=== PATIENT | female | born 1935 | race Asian ===

== ENCOUNTER 2018-05-25 16:56 | Inpatient (IN) | payer MEDICARE, BC ==
[~2018-05-25] VITALS: Ht 147.3 cm; Wt 34.3 kg
[2018-05-25] MEDS ORDERED: D5 1/2NS 1,000 ML IV SCH (20:30)
[2018-05-25 20:32] LABS: BASOPHILS % (AUTO) 0.7 % (0.0-2.0); EOSINOPHILS % (AUTO) 0.7 % (0.0-3.0); HEMATOCRIT 37.1 % (37.0-47.0); HEMOGLOBIN 12.5 G/DL (12.0-16.0); LYMPHOCYTES % (AUTO) 14.8 % (20.0-45.0); MEAN CORPUSCULAR VOLUME 89 FL (80-99); MONOCYTES % (AUTO) 8.6 % (1.0-10.0); NEUTROPHILS % (AUTO) 75.3 % (45.0-75.0); PLATELET COUNT 313 K/UL (150-450); RED BLOOD COUNT 4.19 M/UL (4.20-5.40); RED CELL DISTRIBUTION WIDTH 10.9 % (11.6-14.8); WHITE BLOOD COUNT 8.5 K/UL (4.8-10.8)
[2018-05-25 21:49] LABS: ALANINE AMINOTRANSFERASE 23 U/L (12-78); ALBUMIN 3.3 G/DL (3.4-5.0); ALBUMIN/GLOBULIN RATIO 0.9 (1.0-2.7); ALKALINE PHOSPHATASE 285 U/L (46-116); ANION GAP 2 mmol/L (5-15); ASPARTATE AMINO TRANSFERASE 20 U/L (15-37); BILIRUBIN,TOTAL 0.5 MG/DL (0.2-1.0); BLOOD UREA NITROGEN 32 mg/dL (7-18); CALCIUM 8.8 MG/DL (8.5-10.1); CARBON DIOXIDE 30 MMOL/L (21-32); CHLORIDE 104 MMOL/L (98-107); CHOLESTEROL 137 MG/DL (< 200); CREATININE 0.5 MG/DL (0.55-1.30); HDL CHOLESTEROL 74 MG/DL (40-60); POTASSIUM 3.4 MMOL/L (3.5-5.1); SODIUM 136 MMOL/L (136-145); TRIGLYCERIDES 60 MG/DL (30-150)
[2018-05-25 22:30] VITALS: BP 129/60
--- NOTE | 2018-05-25 22:30 | History and Physical Report ---
DATE OF ADMISSION: 05/25/2018 CHIEF COMPLAINT: Toxic metabolic encephalopathy and altered mental status. HISTORY OF PRESENT ILLNESS: The patient is an 83-year-old female. She has a history of hypertension, osteoporosis, vitamin D deficiency, and hyperlipidemia. She was brought in from home from her assisted living with complaints of worsening confusion. According to staff at the [facility], the patient has been increasingly confused and has had worsening weight loss. She has been refusing to eat. She has been found defecating on the floor and playing with her stool. She was seen a little over a [id number]-[id number]-[id number]-half ago. At that time, was doing well. I assumed the care only a trfpt-[id number]-[id number]-half ago. On my prior visit, the patient did seem somewhat withdrawn and paranoid. There are no reports of any hallucinations. The patient denies any chest pain or shortness of breath. No dysuria. No cough. No fevers or chills. PAST MEDICAL HISTORY: As above. PAST SURGICAL HISTORY: None. CURRENT MEDICATIONS: Reconciled and reviewed. ALLERGIES: None. FAMILY HISTORY: Unknown. SOCIAL HISTORY: There is no known history of tobacco, ethanol, or drugs. REVIEW OF SYSTEMS: GENERAL: No fevers or chills. HEENT: No headaches or visual changes. CARDIOPULMONARY: No chest pain or shortness of breath. GASTROINTESTINAL: No nausea or vomiting. Positive anorexia or weight loss. GENITOURINARY: No urgency or frequency. MUSCULOSKELETAL: No joint pain or swelling. NEUROLOGIC: No evidence of seizures. PHYSICAL EXAMINATION: VITAL SIGNS: Temperature 98 degrees, blood pressure 130/76, pulse 82, and respirations 20. GENERAL: The patient is a well-developed, thin female, in no apparent distress. She is awake, alert, and follows commands. NECK: Supple. HEART: Regular rate and rhythm. LUNGS: Clear. ABDOMEN: Soft, nontender, and nondistended. EXTREMITIES: Without clubbing or cyanosis. The patient moves all four extremities. Sensation is intact bilaterally. LABORATORY AND DIAGNOSTIC DATA: Laboratories are pending. ASSESSMENT: This is an 83-year-old female with no complaints of failure to thrive, worsening altered mental status, unclear etiology. 1. Toxic metabolic encephalopathy. 2. History of dementia. 3. Vitamin D deficiency. 4. Hyperlipidemia. PLAN: 1. Admit to medical/surgical bed. 2. Followup pending laboratories. 3. Gentle hydration. 4. Anxiolytics as needed. 5. Check UA and chest x-ray. 6. Check electrolytes. 7. Check thyroid function tests. 8. Check B12 and folate level. 9. Psychiatric consultation. 10. A Neurology consultation had been obtained. Tanner Rm M.D. DR: MARCI JOB#: [id number] CC:
[2018-05-26] VITALS: BP 130/62
[2018-05-26 04:00] VITALS: BP 124/61
[2018-05-26 05:53] LABS: APPEARANCE,URINE CLEAR; BILIRUBIN, URINE NEGATIVE (NEGATIVE); COLOR,URINE AMBER; GLUCOSE, URINE (UA) NEGATIVE (NEGATIVE); KETONES,URINE NEGATIVE (NEGATIVE); LEUKOCYTE ESTERASE ,URINE 1+ (NEGATIVE); NITRITE,URINE POSITIVE (NEGATIVE); PH,URINE 6 (4.5-8.0); PROTEIN,URINE 1+ (NEGATIVE); UROBILINOGEN,URINE NORMAL MG/DL (0.0-1.0)
[2018-05-26] MEDS: Aspirin EC 81mg tab ORAL SCH (09:08)
[2018-05-26] MEDS: Tums 500mg ORAL SCH ×2 (09:08→17:50)
[2018-05-26] MEDS: Heparin 5000 units/ml inj SUBQ SCH ×2 (09:11→20:30)
[2018-05-26] MEDS ORDERED: LORazepam Inj 2mg/ml 1ml IV PRN (09:45)
[2018-05-26] MEDS ORDERED: ASPIRIN EC81 MG ORAL (09:49)
[2018-05-26] MEDS ORDERED: OS-CAL 500+D31 EAC1 PO (09:49)
[2018-05-26] MEDS ORDERED: RISEDRONATE SOD35 M1 PO (09:50)
[2018-05-26] MEDS ORDERED: MULTI VITAMIN1 EACH ORAL (10:49)
[2018-05-26] MEDS: D5NS w/KCl 40mEq 1000ml 1,000 ML IV SCH (10:59)
[2018-05-26] MEDS: cefTRIAXone 1 GM in D5W 55 ML IVPB SCH (11:00)
[2018-05-26 12:00] VITALS: BP 147/62
--- NOTE | 2018-05-26 13:49 | Diagnostic Imaging Report ---
Indication: Dementia. Altered mental status Technique: Contiguous 5 mm thick transaxial imaging of the head obtained in a Siemens Sensation [address] scanner. Soft tissue and bone windows generated. Automatic Exposure Control was utilized. Total Dose length Product (DLP): 918.[address] Dose Index Volume (CTDIvol): 70.38 mGy Comparison: none Findings: There is moderate prominence of the ventricles, basal cisterns, and cerebral sulci consistent with atrophy. Moderate, nonspecific, white matter hypoattenuation is noted throughout the brain consistent with chronic small vessel disease. There is no midline shift, edema, acute hemorrhage, mass effect, or abnormal extra-axial fluid collections. Bones and extra osseous soft tissues are unremarkable. Impression: No acute intracranial bleed, mass effect or edema. Moderate atrophy of the brain. Evidence of chronic small vessel disease involving white matter tracts. The CT scanner at [facility] is accredited by the [employer] and the scans are performed using dose optimization techniques as appropriate to a performed exam including Automatic Exposure control.
--- NOTE | 2018-05-26 15:15 | Cardiology Report ---
APPROVED REPORT EXAM: Two-dimensional and M-mode echocardiogram with Doppler and color Doppler. INDICATION Abnormal cardiac function study M-Mode DIMENSIONS IVSd0.8 (0.7-1.1cm)Left Atrium (MM)2.2 (1.6-4.0cm) LVDd4.2 (3.5-5.6cm)Aortic Root2.9 (2.0-3.7cm) PWd0.9 (0.7-1.1cm)Aortic Cusp Exc.1.8 (1.5-2.0cm) LVDs2.6 (2.5-4.0cm) PWs1.2 cm Normal left ventricular chamber size, systolic function and wall motion. Left ventricular ejection fraction estimated to be 70 %. No evidence of left ventricular hypertrophy. No evidence of pericardial effusion. All other cardiac chamber sizes are within normal limits. Focal aortic valve sclerosis with adequate cusp excursion. Thickened mitral valve leaflets with normal excursion. Mitral annulus and aortic root calcification. Normal pulmonic valve structure. Normal tricuspid valve structure. IVC measured at 2.1 cm with physiologic collapse. A color flow and spectral Doppler study was performed and revealed: Mild to moderate aortic regurgitation. Mild mitral regurgitation. Mitral inflow indicates normal left ventricular diastolic function. Trace to mild tricuspid regurgitation. Tricuspid systolic velocities suggests peak right ventricular systolic pressure of 30 mmHg.
[2018-05-26 16:00] VITALS: BP 138/65
--- NOTE | 2018-05-26 19:45 | Neurology Progress Note ---
Interim History Interim History Interim History NEUROLOGY CONSULTATION: Full note dictated #[id number] 83 y/o, RH, JAF with a PH of depression for numerous years, HTN, DL, osteoporosis, vitamin D deficiency, and a dementia for the last 5-6 years that has progressively worsened. She was recently moved from her home to an GROUP [facility]. For the last few days she has had worsening confusion. According to staff at the [facility], the patient has been increasingly confused and has had progressive weight loss. She has been refusing to eat. She has been found defecating on the floor and playing with her stool. ON EXAM: Drowsy - was sedated for CT of brain. Oriented to self only. No focal findings. 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 Exam inadequate today due to recent sedation. REC: W/U for cognitive decline. Aggressive Rx of UTI Will re-evaluate tomorrow. Haja Daniel M.D., M.S.P.H. Objective Physical Exam Last Vital Signs Date Time Temp Pulse Resp B/P (MAP) Pulse Ox O2 Delivery O2 Flow Rate FiO2 05/26/18 16:00 96.7 83 18 138/65 (89) 96 05/26/18 09:00 Room Air Laboratory Tests Test 05/25/18 20:05 05/26/18 04:00 05/26/18 05:35 White Blood Count 8.5 K/UL (4.8-10.8) Red Blood Count 4.19 M/UL (4.20-5.40) L Hemoglobin 12.5 G/DL (12.0-16.0) Hematocrit 37.1 % (37.0-47.0) Mean Corpuscular Volume 89 FL (80-99) Mean Corpuscular Hemoglobin 29.8 PG (27.0-31.0) Mean Corpuscular Hemoglobin Concent 33.6 G/DL (32.0-36.0) Red Cell Distribution Width 10.9 % (11.6-14.8) L Platelet Count 313 K/UL (150-450) Mean Platelet Volume 4.6 FL (6.5-10.1) L Neutrophils (%) (Auto) 75.3 % (45.0-75.0) H Lymphocytes (%) (Auto) 14.8 % (20.0-45.0) L Monocytes (%) (Auto) 8.6 % (1.0-10.0) Eosinophils (%) (Auto) 0.7 % (0.0-3.0) Basophils (%) (Auto) 0.7 % (0.0-2.0) Sodium Level 136 MMOL/L (136-145) Potassium Level 3.4 MMOL/L (3.5-5.1) L Chloride Level 104 MMOL/L (98-107) Carbon Dioxide Level 30 MMOL/L (21-32) Anion Gap 2 mmol/L (5-15) L Blood Urea Nitrogen 32 mg/dL (7-18) H Creatinine 0.5 MG/DL (0.55-1.30) L Estimat Glomerular Filtration Rate mL/min (>60) Glucose Level 113 MG/DL (74-106) H Calcium Level 8.8 MG/DL (8.5-10.1) Total Bilirubin 0.5 MG/DL (0.2-1.0) Aspartate Amino Transf (AST/SGOT) 20 U/L (15-37) Alanine Aminotransferase (ALT/SGPT) 23 U/L (12-78) Alkaline Phosphatase 285 U/L (46-116) H Troponin I 0.125 ng/mL (0.000-0.056) 0.108 ng/mL (0.000-0.056) Total Protein 6.9 G/DL (6.4-8.2) Albumin 3.3 G/DL (3.4-5.0) L Globulin 3.6 g/dL Albumin/Globulin Ratio 0.9 (1.0-2.7) L Triglycerides Level 60 MG/DL (30-150) Cholesterol Level 137 MG/DL (< 200) LDL Cholesterol 58 mg/dL (<100) HDL Cholesterol 74 MG/DL (40-60) H Cholesterol/HDL Ratio 1.9 (3.3-4.4) L Vitamin B12 Level 440 PG/ML (193-986) Thyroid Stimulating Hormone (TSH) 1.531 uiU/mL (0.358-3.740) Urine Color Carli Urine Appearance Clear Urine pH 6 (4.5-8.0) Urine Specific [place] 1.020 (1.005-1.035) Urine Protein 1+ (NEGATIVE) H Urine Glucose (UA) Negative (NEGATIVE) Urine Ketones Negative (NEGATIVE) Urine Blood 2+ (NEGATIVE) H Urine Nitrite Positive (NEGATIVE) H Urine Bilirubin Negative (NEGATIVE) Urine Ictotest (NEGATIVE) Urine Urobilinogen Normal MG/DL (0.0-1.0) Urine Leukocyte Esterase 1+ (NEGATIVE) H Urine RBC 0-2 /HPF (0 - 2) Urine WBC 5-10 /HPF (0 - 2) H Urine Squamous Epithelial Cells Many /LPF (NONE/OCC) H Urine Bacteria Many /HPF (NONE) H Haja Daniel MD May 26, 2018 19:45
[2018-05-26 20:00] VITALS: BP 142/67
--- NOTE | 2018-05-26 23:30 | Consultation ---
DATE OF CONSULTATION: 05/26/2018 NEUROLOGY CONSULTATION CONSULTING PHYSICIAN: Haja Daniel M.D. REQUESTING PHYSICIAN: Tanner Rm M.D. HISTORY: Ms. Delaney Hyman is an 83-year-old, [place] lady who does have a past history of depression for numerous years, hypertension, dyslipidemia, osteoporosis, vitamin D deficiency, and dementia for the last 5 to 6 years that has progressively worsened. She was living at home until February 2018 when she was moved to an assisted living facility. For the last few days, she has had worsening confusion, disorientation at times agitation and according to the staff at her assisted living facility she has been confused and had progressive weight loss. She has refused to eat and at times has been found defecating on the floor and playing with her feces. As a result of these problems, she was brought into the [facility] Emergency Room and has since been admitted. This consultation was requested to evaluate the patient from a neurological point of view for a decline in cognitive function and behavioral problems. At this point in time, the patient is unable to give me any history. She is sedated from the Ativan that she got to obtain CT scan of the brain earlier today. PAST MEDICAL HISTORY: Significant for depression, hypertension, dyslipidemia, osteoporosis, vitamin D deficiency, and dementia. FAMILY HISTORY: Nothing significant. PERSONAL HISTORY: Home: She lives in an assisted living facility. Work: She is retired. Habits: There is no history of alcohol, tobacco, or illicit drugs. PRESENT MEDICATIONS: Include Fosamax, ceftriaxone, heparin for DVT prophylaxis, aspirin 81 mg daily, calcium carbonate, and she got a single dose of Ativan 2 mg IV earlier today for her CT scan. PHYSICAL EXAMINATION: GENERAL: She is a well-developed, well-nourished, pleasant, [place] lady, lying in bed, in no acute distress. VITAL SIGNS: Pulse 65 per minute, blood pressure 138/65 mmHg, respirations 18 per minute, and temperature 96.7 degrees Fahrenheit. HEAD: Normocephalic and atraumatic. NECK: No neck rigidity was observed. EENT: Examination benign. NEUROLOGIC EXAMINATION: MENTAL STATUS EXAMINATION: She was drowsy, but could be aroused. When aroused, she was oriented to self only. She had no idea where she was or what the date was. She was able to recall 3/3 words immediately, but could not remember any of them in one minute and 3 minutes. She was unable to tell me who the present President was and who prior presidents were. Her mathematical skills were impaired. Her visuospatial function was also impaired. Please note that the patient was still sedated from the Ativan she got earlier. SPEECH: She had no dysarthria. LANGUAGE: She was able to comprehend relatively well but had problems expressing herself. CRANIAL NERVE EXAMINATION: II: The visual heller were intact to confrontation testing. III, IV & : The external ocular movements were full and the pupils 3 mm in diameter, equal, round, regular, and reactive to light. V: She had normal facial sensations, and the temporales, masseters, and pterygoids functioned normally. VII: She had normal facial expressions and no facial asymmetry. VIII: She was able to hear well bilaterally and had no nystagmus. IX: The palate moved symmetrically on phonation. X: She had no hoarseness of voice. XI: The sternocleidomastoids and trapezii functioned normally. XII: The tongue was in the midline without any fasciculations or atrophy. MOTOR SYSTEM: The tone was normal in all four extremities. Examination of muscle mass revealed no focal wasting. Examination of power was exceedingly difficult to perform because of varying degrees of cooperation. She however did not have any focality to motor exam therefore it was however not satisfactory. SENSORY EXAMINATION: She responded appropriately to deep pain. She was unable to cooperate for the sensory modalities. REFLEXES: 1+ and bilaterally symmetrical at the biceps, triceps, brachioradialis, and knees, 0 at both ankles. The plantar responses were flexor bilaterally. COORDINATION, STANCE & GAIT: Could not be tested. DIAGNOSTIC IMPRESSION: 1. Ms. Delaney Hyman is an 83-year-old, [place] lady, who does have a past history of depression, hypertension, dyslipidemia, osteoporosis, vitamin D deficiency, and dementia for the last 5 to 6 years which has progressively worsened and worsened significantly in the last few weeks. 2. On neurological examination, at this time, which is not very accurate due to the recent sedation, she is drowsy and oriented only to self and has global cerebral dysfunction. She however does not demonstrate any focal neurological findings. 3. CT scan of the brain without contrast is benign. 4. Laboratory data obtained thus far have revealed a relatively normal CBC, a chemistry panel with the BUN elevated at 32 with a normal creatinine of 0.5, glucose elevated to 113, alkaline phosphatase elevated to 285, albumin low at 3.3. B12 normal at 440. TSH normal at 1.53. Her urinalysis revealed 2+ leukocyte esterase, 0-2 red blood cells and 5-10 white blood cells per high-power field with many urinary bacteria. 5. The patient's history, neurological examination, and laboratory data are most compatible with a possible underlying primary degenerative dementia with a superadded encephalopathy which may be related to her urinary tract infection. However at this point in time, her examination is not accurate due to her recent sedation. RECOMMENDATIONS: 1. Agree with management thus far. 2. The patient should be worked up thoroughly for treatable causes of cognitive decline with in addition to the laboratory tests already done, a vitamin D level, hemoglobin A1c, RPR. 3. Agree with aggressive treatment of the patient's urinary tract infection. 4. The patient will be re-evaluated tomorrow to determine the degree of underlying neurological dysfunction once the sedative effect of the Ativan has resolved. Thank you for entrusting me with the care of Ms. Hyman. I shall follow her with you. Haja Daniel M.D., M.S.P.H. DR: Delia JOB#: [id number] KENDRA
--- NOTE | 2018-05-26 23:58 | Consultation ---
History of Present Illness Present Illness HPI 83-year-old female. She has a history of hypertension, osteoporosis, vitamin D deficiency, and hyperlipidemia. She was brought in from home from her assisted living with complaints of worsening confusion. the pt is agitated and has waxing and waning of consciousness. the pt has not been eating. Allergies: Coded Allergies: No Known Allergies (Unverified , 05/25/18) per paperwork from [facility] [place] Medication History Scheduled Aspirin Ec* (Aspirin Ec*), 81 MG ORAL DAILY, (Reported) Multivitamin (Multi Vitamin Daily), 1 TAB ORAL DAILY, (Reported) Risedronate Sodium (Risedronate Sodium Dr), 35 MG PO ONCE A WEEK, (Reported) Miscellaneous Medications Calcium Carbonate/Vitamin D3 (Os-Cecilio 500+D3 Caplet), 1 EACH PO, (Reported) Patient History Limited by: medical condition History Provided By: Patient, Medical Record, PMD Healthcare decision maker Jimbo Resuscitation status Full Code Advanced Directive on File POLST Past Medical/Surgical History Past Medical/Surgical History: (1) AMI (acute mesenteric ischemia) (2) FTT (failure to thrive) in adult Review of Systems Psychiatric: Reports: prior hx, anxiety, depressed feelings, emotional problems Physical Exam General Appearance: lethargic, confused, moderate distress, agitated Last 24 Hour Vital Signs Date Time Temp Pulse Resp B/P (MAP) Pulse Ox O2 Delivery O2 Flow Rate FiO2 05/26/18 21:00 Room Air 05/26/18 21:00 Room Air 05/26/18 20:00 98.1 77 18 142/67 (92) 98 05/26/18 19:35 70 05/26/18 16:00 96.7 83 18 138/65 (89) 96 05/26/18 16:00 65 05/26/18 12:00 68 05/26/18 12:00 96.4 83 18 147/62 (90) 99 05/26/18 09:00 Room Air 05/26/18 09:00 Room Air 05/26/18 08:00 79 05/26/18 04:00 75 05/26/18 04:00 97.7 20 124/61 (82) 99 05/26/18 00:00 79 05/26/18 00:00 98.0 82 18 130/62 (84) 96 Intake and Output 05/25/18 05/26/18 18:59 06:59 Intake Total 125 ml Balance 125 ml Intake Oral 125 ml Laboratory Tests Test 05/26/18 04:00 05/26/18 05:35 05/26/18 07:30 Urine Color Carli Urine Appearance Clear Urine pH 6 (4.5-8.0) Urine Specific [place] 1.020 (1.005-1.035) Urine Protein 1+ (NEGATIVE) H Urine Glucose (UA) Negative (NEGATIVE) Urine Ketones Negative (NEGATIVE) Urine Blood 2+ (NEGATIVE) H Urine Nitrite Positive (NEGATIVE) H Urine Bilirubin Negative (NEGATIVE) Urine Ictotest (NEGATIVE) Urine Urobilinogen Normal MG/DL (0.0-1.0) Urine Leukocyte Esterase 1+ (NEGATIVE) H Urine RBC 0-2 /HPF (0 - 2) Urine WBC 5-10 /HPF (0 - 2) H Urine Squamous Epithelial Cells Many /LPF (NONE/OCC) H Urine Bacteria Many /HPF (NONE) H Troponin I 0.108 ng/mL (0.000-0.056) Erythrocyte Sedimentation Rate 11 MM/HR (0-30) Hemoglobin A1c 6.3 % (4.3-6.0) H Height (Feet): 4 Height (Inches): 10.00 Weight (Pounds): 80 Medications Current Medications Medications (Trade) Dose Ordered Sig/Maliha Route PRN Reason Start Time Stop Time Status Last Admin Dose Admin Alendronate Sodium (Fosamax) 70 mg QWEEK ORAL 06/02/18 06:30 07/02/18 06:29 Aspirin (Ecotrin) 81 mg DAILY ORAL 05/26/18 09:00 06/25/18 08:59 05/26/18 09:08 Calcium Carbonate (Tums) 500 mg BID ORAL 05/26/18 09:00 06/25/18 08:59 05/26/18 09:08 Ceftriaxone Sodium 1 gm/ Dextrose 55 ml @ 110 mls/hr Q24H IVPB 05/26/18 10:00 06/02/18 09:59 05/26/18 11:00 Dextrose/ Electrolytes 1,000 ml @ 50 mls/hr Q20H IV 05/26/18 10:00 06/25/18 09:59 05/26/18 10:59 Heparin Sodium (Porcine) (Heparin 5000 units/ml) 5,000 units EVERY 12 HOURS SUBQ 05/26/18 09:00 06/25/18 08:59 05/26/18 20:30 Lorazepam (Ativan 2mg/ml 1ml) 2 mg Q4H PRN IV For Anxiety 05/26/18 09:45 06/02/18 09:44 05/26/18 10:55 Assessment/Plan Problem List: (1) encephalopathy due to toxin (2) FTT (failure to thrive) in adult ICD Codes: R62.7 - Adult failure to thrive SNOMED: 334251202 Assessment/Plan zyprexa 5mg bid zyprexa 5mg prn provided ro/Nguyen Nogueira MD May 26, 2018 23:58
--- NOTE | 2018-05-27 03:00 | Consultation ---
DATE OF CONSULTATION: 05/25/2018 CARDIOLOGY CONSULTATION CONSULTING PHYSICIAN: Sheldon Luque M.D. REQUESTING PHYSICIAN: Tanner Rm M.D. REASON: Elevated troponin level, evaluate for cardiac ischemia. HISTORY OF PRESENT ILLNESS: This 83-year-old female residing in an assisted living facility namely [facility], was brought into the hospital for evaluation of worsening confusion. The patient has been refusing to eat, losing weight, and acting quite differently from usual. In fact at one point, she was reportedly found on the floor playing with her stool. The patient apparently does not have a prior history of hallucinations, although she does have some degree of dementia at baseline. Admission laboratory studies have been obtained and notable for an elevated troponin level prompting this consultation. The patient is an unreliable historian, but has not noted any complaints of chest pain or shortness of breath. PAST MEDICAL HISTORY: Notable for osteoporosis, osteoarthritis, vitamin D deficiency, hypertension, hyperlipidemia, and dementia. ALLERGIES: None known. MEDICATIONS: Reviewed and reconciled. SOCIAL HISTORY: Negative for smoking, alcohol, or substance abuse in the past present. FAMILY HISTORY: Not known. REVIEW OF SYSTEMS: Obtained from caregivers and all systems are negative other than details outlined above. PHYSICAL EXAMINATION: VITAL SIGNS: The patient is afebrile, blood pressure 130/76, pulse 82, and respirations 20. GENERAL: Thin and frail, in no distress. Follows commands and cooperative. HEENT: Conjunctiva pink. Mucous membranes moist. NECK: Supple. No jugular venous distention. No thyromegaly. LUNGS: Clear. CARDIAC: Regular rhythm and rate. Normal S1, S2 with a fourth heart sound. ABDOMEN: Soft, nontender. EXTREMITIES: Good pulses. No edema. NEUROLOGIC: Reveals symmetric strength. No asterixis. Mild to moderate cognitive impairment. LABORATORY DATA: Sodium 136, potassium 3.4, bicarbonate 30, BUN 32 creatinine 0.5, and glucose 113. Troponin 0.125. Albumin 3.3. B12 440. TSH 1.5. Total cholesterol is 137. White count is 8.5 and hemoglobin 12.5, and urinalysis revealed 5 to 10 white cells with many bacteria. IMPRESSION: 1. Encephalopathy, etiology unclear. 2. Possible urinary tract infection. 3. Underlying baseline dementia. 4. History of hyperlipidemia, on statin therapy. 5. Elevated troponin level possibly suggesting acute myocardial ischemia. 6. History of hypertension with controlled blood pressure. PLAN: 1. Antiplatelet therapy. 2. Serial troponin levels. 3. Reassess statin dose in view of low LDL level. 4. Metabolic profile. 5. Conservative management. Sheldon Luque M.D. DR: ANN JOB#: [id number] CC:
[2018-05-27 04:00] VITALS: BP 144/75
--- NOTE | 2018-05-27 04:15 | Progress Note ---
DATE: 05/26/2018 CARDIOLOGY PROGRESS NOTE SUBJECTIVE: The patient received Haldol last night as well as sedation for a CAT scan. She is quite sleepy and somnolent today. No complaints of chest pain. No apparent shortness of breath per staff. OBJECTIVE: VITAL SIGNS: Blood pressure 147/62, pulse 68, respiratory rate 18, and afebrile. Monitored rhythm, sinus. NECK: No accessory muscle use. LUNGS: Bilateral breath sounds. HEART: Regular rhythm and rate. Normal S1 and S2. No new murmur. ABDOMEN: Soft. EXTREMITIES: No edema. LABORATORY DATA: Troponin level has decreased to 0.108. IMPRESSION: 1. Acute myocardial ischemia, possible non-ST elevation infarction. 2. Toxic metabolic encephalopathy. 3. Urinary tract infection. 4. Dementia with psychosis. 5. Oversedation post medications namely lorazepam and olanzapine. PLAN: 1. olanzapine dosing per psychiatrist. 2. Cautious hydration. 3. Empiric antimicrobials. 4. Anti-platelet therapy. 5. Hold statin drug. 6. Follow up troponin level, CK, and CK-MB fraction. 7. Conservative management. 8. Echocardiogram to follow. Sheldon Luque M.D. DR: JORGE JOB#: [id number] CC:
[2018-05-27] MEDS: D5NS w/KCl 40mEq 1000ml 1,000 ML IV SCH (05:54)
[2018-05-27] MEDS: Tums 500mg ORAL SCH ×2 (08:26→17:06)
[2018-05-27] MEDS: Aspirin EC 81mg tab ORAL SCH (08:27)
[2018-05-27] MEDS: Heparin 5000 units/ml inj SUBQ SCH ×2 (08:28→21:00)
[2018-05-27 08:51] VITALS: BP 144/59
[2018-05-27] MEDS: cefTRIAXone 1 GM in D5W 55 ML IVPB SCH (09:09)
[2018-05-27 09:41] LABS: ALANINE AMINOTRANSFERASE 12 U/L (12-78); ALBUMIN 2.9 G/DL (3.4-5.0); ALBUMIN/GLOBULIN RATIO 0.7 (1.0-2.7); ALKALINE PHOSPHATASE 269 U/L (46-116); ANION GAP 8 mmol/L (5-15); ASPARTATE AMINO TRANSFERASE 19 U/L (15-37); BILIRUBIN,TOTAL 0.4 MG/DL (0.2-1.0); BLOOD UREA NITROGEN 9 mg/dL (7-18); CALCIUM 8.8 MG/DL (8.5-10.1); CARBON DIOXIDE 26 MMOL/L (21-32); CHLORIDE 107 MMOL/L (98-107); CREATININE 0.4 MG/DL (0.55-1.30); POTASSIUM 3.9 MMOL/L (3.5-5.1); SODIUM 141 MMOL/L (136-145)
[2018-05-27 10:33] LABS: CKMB 1.6 NG/ML (0.0-3.6)
[2018-05-27 12:00] VITALS: BP 131/67
[2018-05-27 16:00] VITALS: BP 153/66
--- NOTE | 2018-05-27 17:55 | Neurology Progress Note ---
Interim History Interim History Interim History Ms. Hyman feels better today. She is more awake and alert. She is able to have a conversation. She however is significantly aphasic and thus has difficulty expressing herself. She says she is not eating because she should be "eating less." She is cognitively impoverished. She feels generally weak but has not walked much recently. Review of Systems Neuro Review of Systems Benign. Objective Physical Exam Last Vital Signs Date Time Temp Pulse Resp B/P (MAP) Pulse Ox O2 Delivery O2 Flow Rate FiO2 05/27/18 16:00 97.9 75 18 153/66 (95) 99 05/27/18 09:00 Room Air Laboratory Tests Test 05/27/18 07:40 Sodium Level 141 MMOL/L (136-145) Potassium Level 3.9 MMOL/L (3.5-5.1) Chloride Level 107 MMOL/L (98-107) Carbon Dioxide Level 26 MMOL/L (21-32) Anion Gap 8 mmol/L (5-15) Blood Urea Nitrogen 9 mg/dL (7-18) Creatinine 0.4 MG/DL (0.55-1.30) L Estimat Glomerular Filtration Rate mL/min (>60) Glucose Level 91 MG/DL (74-106) Calcium Level 8.8 MG/DL (8.5-10.1) Magnesium Level 2.1 MG/DL (1.8-2.4) Total Bilirubin 0.4 MG/DL (0.2-1.0) Aspartate Amino Transf (AST/SGOT) 19 U/L (15-37) Alanine Aminotransferase (ALT/SGPT) 12 U/L (12-78) Alkaline Phosphatase 269 U/L (46-116) H Total Creatine Kinase 68 U/L (26-308) Creatine Kinase MB 1.6 NG/ML (0.0-3.6) Creatine Kinase MB Relative Index 2.3 Troponin I 0.033 ng/mL (0.000-0.056) Pro-B-Type Natriuretic Peptide 604 pg/mL (0-125) H Total Protein 6.8 G/DL (6.4-8.2) Albumin 2.9 G/DL (3.4-5.0) L Globulin 3.9 g/dL Albumin/Globulin Ratio 0.7 (1.0-2.7) L Vitamin D 25-Hydroxy Pending 25-Hydroxy Vitamin D2 Pending 25-Hydroxy Vitamin D3 Pending Rapid Plasma Reagin Pending Neurologic Exam Objective PHYSICAL EXAMINATION: GENERAL: She is a well-developed, well-nourished, pleasant, [place] lady, sitting up in a chair, in no acute distress. HEAD: Normocephalic and atraumatic. NECK: No neck rigidity was observed. EENT: Examination benign. NEUROLOGIC EXAMINATION: MENTAL STATUS EXAMINATION: She was awake and alert She was oriented to self only. She had no idea where she was or what the date was. She was able to recall 3/3 words immediately, but could not remember any of them in 1 minute and 3 minutes. She was unable to tell me who the present President was and who prior presidents were. Her mathematical skills were impaired. Her visuospatial function was also impaired. SPEECH: She had no dysarthria. LANGUAGE: She was able to comprehend relatively well but had problems expressing herself. She was significantly anomic. CRANIAL NERVE EXAMINATION: II: The visual heller were intact to confrontation testing. III, IV & : The external ocular movements were full and the pupils 3 mm in diameter, equal, round, regular, and reactive to light. V: She had normal facial sensations, and the temporales, masseters, and pterygoids functioned normally. VII: She had normal facial expressions and no facial asymmetry. VIII: She was able to hear well bilaterally and had no nystagmus. IX: The palate moved symmetrically on phonation. X: She had no hoarseness of voice. XI: The sternocleidomastoids and trapezii functioned normally. XII: The tongue was in the midline without any fasciculations or atrophy. MOTOR SYSTEM: The tone was normal in all four extremities. Examination of muscle mass revealed no focal wasting. Examination of power revealed G 5-/5 power except for G 4/5 in the iliopsoas. SENSORY EXAMINATION: She responded appropriately to light touch. REFLEXES: 1+ and bilaterally symmetrical at the biceps, triceps, brachioradialis , and knees, 0 at both ankles. The plantar responses were flexor bilaterally. COORDINATION: She performed well on [id number] testing. STANCE: She stood up with support. GAIT: She walked well with support. Impression/Recommendations Diagnostic Impression 1. Ms. Delaney Hyman is an 83-year-old, [place] lady, who does have a past history of depression, hypertension, dyslipidemia, osteoporosis, vitamin D deficiency, and dementia for the last 5 to 6 years which has progressively worsened and worsened significantly in the last few weeks. 2. She feels better today. She is more awake and alert. She is able to have a conversation. She however is significantly aphasic and thus has difficulty expressing herself. She says she is not eating because she should be "eating less." She is cognitively impoverished. She feels generally weak but has not walked much recently. 3. On neurological examination, at this time, she is oriented only to self only , has problems with recent and remote memory, visuospatial function, higher cognitive function and language. She is also generally weak - more so in the proximal lower extremities. She does not demonstrate any focal neurological findings. 4. CT scan of the brain without contrast is benign. 5. Laboratory data on my initial evaluation revealed a relatively normal CBC, a chemistry panel with the BUN elevated at 32 with a normal creatinine of 0.5, glucose elevated to 113, alkaline phosphatase elevated to 285, albumin low at 3.3. B12 normal at 440. TSH normal at 1.53. Her urinalysis revealed 2+ leukocyte esterase, 0-2 red blood cells and 5-10 white blood cells per high- power field with many urinary bacteria. 6. The patient's history, neurological examination, and laboratory data are most compatible with a possible underlying primary degenerative dementia - probable Alzheimer's Disease with a superadded encephalopathy which may be related to her urinary tract infection. Recommendations 1. Continue present management. 2. Aggressive treatment of urinary tract infection. 3. Mobilize with PT/OT. 4. Out of bed in chair of all meals. 5. Start Namenda 5 mg q AM with breakfast and then increase stepwise to 10 mg with breakfast and dinner. Haja Daniel M.D., M.S.P.H. Haja Daniel MD May 27, 2018 17:55
--- NOTE | 2018-05-27 18:00 | General Progress Note ---
Assessment/Plan Problem List: (1) AMI (acute mesenteric ischemia) ICD Codes: K55.059 - Acute (reversible) ischemia of intestine, part and extent unspecified SNOMED: 21786301 (2) FTT (failure to thrive) in adult ICD Codes: R62.7 - Adult failure to thrive SNOMED: 258047436 Status: stable, progressing Assessment/Plan antiplt rx psych rx pt/ot Subjective ROS Limited/Unobtainable: No HEENT: Reports: no symptoms Cardiovascular: Reports: no symptoms Respiratory: Reports: no symptoms Gastrointestinal/Abdominal: Reports: no symptoms Genitourinary: Reports: no symptoms Neurologic/Psychiatric: Reports: no symptoms Endocrine: Reports: no symptoms Hematologic/Lymphatic: Reports: no symptoms Allergies: Coded Allergies: No Known Allergies (Unverified , 05/25/18) per paperwork from [facility] [employer]: reviewed and negative except above Subjective no events. w/o complaints. Trop normal now. echo with normal ef Objective Last 24 Hour Vital Signs Date Time Temp Pulse Resp B/P (MAP) Pulse Ox O2 Delivery O2 Flow Rate FiO2 05/27/18 16:00 97.9 75 18 153/66 (95) 99 05/27/18 16:00 84 05/27/18 12:00 97.3 81 18 131/67 (88) 99 05/27/18 12:00 93 05/27/18 09:00 Room Air 05/27/18 09:00 Room Air 05/27/18 08:51 97.5 84 18 144/59 (87) 99 05/27/18 08:00 75 05/27/18 04:00 98.0 66 18 144/75 (98) 99 05/27/18 03:56 57 05/27/18 00:08 60 05/27/18 00:00 68 05/26/18 21:00 Room Air 05/26/18 21:00 Room Air 05/26/18 20:00 98.1 77 18 142/67 (92) 98 05/26/18 19:35 70 Intake and Output 05/26/18 05/27/18 19:00 07:00 Intake Total 630 ml Balance 630 ml Intake Oral 120 ml IV Total 510 ml # Voids 1 2 Laboratory Tests 05/27/18 07:40: Sodium Level 141, Potassium Level 3.9, Chloride Level 107, Carbon Dioxide Level 26, Anion Gap 8, Blood Urea Nitrogen 9, Creatinine 0.4L, Estimat Glomerular Filtration Rate , Glucose Level 91, Calcium Level 8.8, Magnesium Level 2.1, Total Bilirubin 0.4, Aspartate Amino Transf (AST/SGOT) 19, Alanine Aminotransferase (ALT/SGPT) 12, Alkaline Phosphatase 269H, Total Creatine Kinase 68, Creatine Kinase MB 1.6, Creatine Kinase MB Relative Index 2.3, Troponin I 0.033, Pro-B-Type Natriuretic Peptide 604H, Total Protein 6.8, Albumin 2.9L, Globulin 3.9, Albumin/Globulin Ratio 0.7L, Vitamin D 25-Hydroxy [ Pending], 25-Hydroxy Vitamin D2 [Pending], 25-Hydroxy Vitamin D3 [Pending], Rapid Plasma Reagin [Pending] Height (Feet): 4 Height (Inches): 10.00 Weight (Pounds): 75 General Appearance: WD/WN, alert Neck: supple Cardiovascular: normal rate Respiratory/Chest: chest wall non-tender, lungs clear, normal breath sounds Abdomen: normal bowel sounds, non tender, soft, no organomegaly Edema: no edema noted Arm (L), no edema noted Arm (R), no edema noted Leg (L), no edema noted Leg (R), no edema noted Pedal (L), no edema noted Pedal (R), no edema noted Generalized Tanner Rm MD May 27, 2018 18:00
[2018-05-27 20:00] VITALS: BP 126/72
[2018-05-28] VITALS: BP 148/80
[2018-05-28] MEDS: D5NS w/KCl 40mEq 1000ml 1,000 ML IV SCH (02:00)
--- NOTE | 2018-05-28 03:45 | Progress Note ---
DATE: 05/27/2018 CARDIOLOGY PROGRESS NOTE SUBJECTIVE: The patient without shortness of breath or chest pain. She has no complaints. The patient's echocardiogram is still pending. OBJECTIVE: VITAL SIGNS: Blood pressure 131/67 to 153/66, heart rate 75 to 93, respiratory rate 18, and afebrile. LUNGS: Clear. CARDIAC: Regular rhythm and rate. Normal S1, S2 with a 1/6 systolic murmur at apex. ABDOMEN: Soft. EXTREMITIES: No edema. LABORATORY DATA: Troponin level is normal at 0.033. It peaked at 0.125. CK was only 68. Chemistry panel within normal limits. IMPRESSION: 1. Episode of acute myocardial ischemia. 2. No myocardial infarction suspected. 3. Moderate protein-calorie malnutrition. 4. Recurring falls. 5. Urinary tract infection. 6. Toxic encephalopathy. 7. Possible over sedation with medications. PLAN: 1. Discontinue intravenous fluids. 2. Continue anti-platelet therapy. 3. Resume statin drug. 4. No additional cardiovascular therapy planned. Sheldon Luque M.D. DR: RADHA JOB#: [id number] CC:
[2018-05-28 04:00] VITALS: BP 159/87
[2018-05-28 08:00] VITALS: BP 159/57
[2018-05-28] MEDS: Aspirin EC 81mg tab ORAL SCH (08:50)
[2018-05-28] MEDS: cefTRIAXone 1 GM in D5W 55 ML IVPB SCH (08:50)
[2018-05-28] MEDS: Tums 500mg ORAL SCH ×2 (08:50→17:16)
[2018-05-28] MEDS: Memantine 5 MG TAB ORAL SCH (08:50)
[2018-05-28] MEDS: Heparin 5000 units/ml inj SUBQ SCH ×2 (08:51→21:55)
--- NOTE | 2018-05-28 09:10 | Neurology Progress Note ---
Interim History Interim History Interim History Ms. Hyman feels better. She is eager to go "home." She is continues to be awake and alert. She is able to have a conversation. She however is significantly aphasic and thus has difficulty expressing herself. Her appetite is still poor. She is cognitively impoverished. She feels generally weak. She denies any new neurologic symptoms. Review of Systems Neuro Review of Systems Benign. Objective Physical Exam Last Vital Signs Date Time Temp Pulse Resp B/P (MAP) Pulse Ox O2 Delivery O2 Flow Rate FiO2 05/28/18 08:00 97.3 92 18 159/57 (91) 100 05/27/18 21:00 Room Air Neurologic Exam Objective PHYSICAL EXAMINATION: GENERAL: She is a well-developed, well-nourished, pleasant, English [place] lady, lying in bed, in no acute distress. HEAD: Normocephalic and atraumatic. NECK: No neck rigidity was observed. EENT: Examination benign. NEUROLOGIC EXAMINATION: MENTAL STATUS EXAMINATION: She was awake and alert She was oriented to self and [facility] only. She had no idea of what the date was. She was able to recall 3/3 words immediately, but could not remember any of them in 1 minute and 3 minutes. She was unable to tell me who the present President was and who prior presidents were. Her mathematical skills were impaired. Her visuospatial function was also impaired. SPEECH: She had no dysarthria. LANGUAGE: She was able to comprehend relatively well but had problems expressing herself. She was significantly anomic. CRANIAL NERVE EXAMINATION: II: The visual heller were intact to confrontation testing. III, IV & : The external ocular movements were full and the pupils 3 mm in diameter, equal, round, regular, and reactive to light. V: She had normal facial sensations, and the temporales, masseters, and pterygoids functioned normally. VII: She had normal facial expressions and no facial asymmetry. VIII: She was able to hear well bilaterally and had no nystagmus. IX: The palate moved symmetrically on phonation. X: She had no hoarseness of voice. XI: The sternocleidomastoids and trapezii functioned normally. XII: The tongue was in the midline without any fasciculations or atrophy. MOTOR SYSTEM: The tone was normal in all four extremities. Examination of muscle mass revealed no focal wasting. Examination of power revealed G 5-/5 power except for G 4/5 in the iliopsoas. SENSORY EXAMINATION: She responded appropriately to light touch. REFLEXES: 1+ and bilaterally symmetrical at the biceps, triceps, brachioradialis , and knees, 0 at both ankles. The plantar responses were flexor bilaterally. COORDINATION: She performed well on [id number] testing. STANCE & GAIT: Were deferred. Impression/Recommendations Diagnostic Impression 1. Ms. Delaney Hyman is an 83-year-old, English-[place] lady, who does have a past history of depression, hypertension, dyslipidemia, osteoporosis, vitamin D deficiency, and dementia for the last 5 to 6 years which has progressively worsened and worsened significantly in the last few weeks. 2. She feels better. She is eager to go "home." She is continues to be awake and alert. She is able to have a conversation. She however is significantly aphasic and thus has difficulty expressing herself. Her appetite is still poor. She is cognitively impoverished. She feels generally weak. She denies any new neurologic symptoms. 3. On neurological examination, at this time, she is oriented to self and [facility], has problems with recent and remote memory, visuospatial function, higher cognitive function and language. She is also generally weak - more so in the proximal lower extremities. She does not demonstrate any focal neurological findings. 4. CT scan of the brain without contrast is benign. 5. Laboratory data on my initial evaluation revealed a relatively normal CBC, a chemistry panel with the BUN elevated at 32 with a normal creatinine of 0.5, glucose elevated to 113, alkaline phosphatase elevated to 285, albumin low at 3.3. B12 normal at 440. TSH normal at 1.53. Her urinalysis revealed 2+ leukocyte esterase, 0-2 red blood cells and 5-10 white blood cells per high- power field with many urinary bacteria. 6. The patient's history, neurological examination, and laboratory data are most compatible with a possible underlying primary degenerative dementia - probable Alzheimer's Disease with a superadded encephalopathy which may be related to her urinary tract infection. Recommendations 1. Continue present management. 2. Aggressive treatment of urinary tract infection. 3. Mobilize with PT/OT. 4. Out of bed in chair of all meals. 5. Namenda 5 mg q AM with breakfast and then increase stepwise to 10 mg with breakfast and dinner. Haja Daniel M.D., M.S.P.H. Haja Daniel MD May 28, 2018 09:10
[2018-05-28] MEDS ORDERED: LORazepam Inj 2mg/ml 1ml IM PRN (10:00)
[2018-05-28] MEDS: Haloperidol 5mg/ml Inj IM PRN (10:24)
[2018-05-28 12:00] VITALS: BP 158/72
--- NOTE | 2018-05-28 12:30 | General Progress Note ---
Assessment/Plan Problem List: (1) FTT (failure to thrive) in adult ICD Codes: R62.7 - Adult failure to thrive SNOMED: 420659213 (2) encephalopathy due to toxin Subjective Neurologic/Psychiatric: Reports: anxiety, depressed, emotional problems Allergies: Coded Allergies: No Known Allergies (Unverified , 05/25/18) per paperwork from [place] [facility] Objective Last 24 Hour Vital Signs Date Time Temp Pulse Resp B/P (MAP) Pulse Ox O2 Delivery O2 Flow Rate FiO2 05/28/18 12:00 97.3 83 18 158/72 (100) 98 05/28/18 12:00 87 05/28/18 09:00 Room Air 05/28/18 08:00 97.3 92 18 159/57 (91) 100 05/28/18 08:00 100 05/28/18 04:00 97.1 81 20 159/87 (111) 99 05/28/18 03:09 91 05/28/18 00:00 97.4 84 18 148/80 (102) 98 05/27/18 23:23 82 05/27/18 21:00 Room Air 05/27/18 21:00 Room Air 05/27/18 20:00 97.3 84 18 126/72 (90) 100 05/27/18 19:00 86 05/27/18 16:00 97.9 75 18 153/66 (95) 99 05/27/18 16:00 84 Intake and Output 05/27/18 05/28/18 19:00 07:00 Intake Total 50 ml 300 ml Balance 50 ml 300 ml IV Total 50 ml 300 ml # Voids 3 # Bowel Movements 1 Height (Feet): 4 Height (Inches): 10.00 Weight (Pounds): 75 General Appearance: alert, confused, agitated Nguyen Slater MD May 28, 2018 12:30
[2018-05-28 16:00] VITALS: BP 153/62
--- NOTE | 2018-05-28 16:45 | General Progress Note ---
Assessment/Plan Problem List: (1) AMI (acute mesenteric ischemia) ICD Codes: K55.059 - Acute (reversible) ischemia of intestine, part and extent unspecified SNOMED: 33856399 (2) FTT (failure to thrive) in adult ICD Codes: R62.7 - Adult failure to thrive SNOMED: 019662847 Status: stable, progressing Assessment/Plan antiplt rx psych rx pt/ot Subjective ROS Limited/Unobtainable: No Constitutional: Reports: fever, malaise HEENT: Reports: no symptoms Cardiovascular: Reports: no symptoms Respiratory: Reports: no symptoms Gastrointestinal/Abdominal: Reports: no symptoms Genitourinary: Reports: no symptoms Neurologic/Psychiatric: Reports: no symptoms Endocrine: Reports: no symptoms Hematologic/Lymphatic: Reports: no symptoms Allergies: Coded Allergies: No Known Allergies (Unverified , 05/25/18) per paperwork from [employer] Subjective no events. w/o complaints. Trop normal now. echo with normal ef Objective Last 24 Hour Vital Signs Date Time Temp Pulse Resp B/P (MAP) Pulse Ox O2 Delivery O2 Flow Rate FiO2 05/28/18 16:00 65 05/28/18 12:00 97.3 83 18 158/72 (100) 98 05/28/18 12:00 87 05/28/18 09:00 Room Air 05/28/18 08:00 97.3 92 18 159/57 (91) 100 05/28/18 08:00 100 05/28/18 04:00 97.1 81 20 159/87 (111) 99 05/28/18 03:09 91 05/28/18 00:00 97.4 84 18 148/80 (102) 98 05/27/18 23:23 82 05/27/18 21:00 Room Air 05/27/18 21:00 Room Air 05/27/18 20:00 97.3 84 18 126/72 (90) 100 05/27/18 19:00 86 Intake and Output 05/27/18 05/28/18 19:00 07:00 Intake Total 50 ml 300 ml Balance 50 ml 300 ml IV Total 50 ml 300 ml # Voids 3 # Bowel Movements 1 Height (Feet): 4 Height (Inches): 10.00 Weight (Pounds): 75 Objective General Appearance: WD/WN, alert Neck: supple Cardiovascular: normal rate Respiratory/Chest: chest wall non-tender, lungs clear, normal breath sounds Abdomen: normal bowel sounds, non tender, soft, no organomegaly Edema: no edema noted Arm (L), no edema noted Arm (R), no edema noted Leg (L), no edema noted Leg (R), no edema noted Pedal (L), no edema noted Pedal (R), no edema noted Generalized Tanner Rm MD May 28, 2018 16:45
[2018-05-28 20:00] VITALS: BP_SYST 147; BP_SYST 154; BP_DIAS 64; BP_DIAS 74
--- NOTE | 2018-05-28 21:45 | Progress Note ---
CARDIOLOGY PROGRESS NOTE DATE: 05/28/2018 SUBJECTIVE: The patient without any new complaints. No apparent shortness of breath or chest pain. PHYSICAL EXAMINATION: VITAL SIGNS: Blood pressure 138/72, pulse 83, and respirations 18. Monitored rhythm is sinus. LUNGS: Good breath sounds. HEART: Regular rhythm and rate. Normal S1, S2 with a fourth heart sound. ABDOMEN: Soft. EXTREMITIES: No edema. LABORATORY DATA: Troponin now is normal. Pro-natriuretic peptide yesterday was 600. CK is only 68 with normal MB and MB index. IMPRESSION: 1. Low likelihood for myocardial infarction, probable acute coronary ischemic event. 2. Moderate protein-calorie malnutrition. 3. Urinary tract infection. 4. Toxic encephalopathy. 5. Medication associated sedation suspected. 6. Recurring falls, unlikely mechanical due to degenerative disk disease and neuropathy. 7. Hypovolemia and dehydration, corrected. PLAN: 1. Continue anti-platelet therapy, statin drug and cautious titration of antihypertensive. 2. Avoid tight blood pressure control and risk of orthostatic complications in this age group and setting. Sheldon Luque M.D. DR: MARY JOB#: [id number] CC:
[2018-05-29] VITALS: BP 147/64
[2018-05-29 04:00] VITALS: BP 143/75
[2018-05-29 08:00] VITALS: BP 128/74
[2018-05-29] MEDS: Memantine 5 MG TAB ORAL SCH (10:53)
[2018-05-29] MEDS: Tums 500mg ORAL SCH (10:53)
[2018-05-29] MEDS: Aspirin EC 81mg tab ORAL SCH (10:53)
[2018-05-29] MEDS: Heparin 5000 units/ml inj SUBQ SCH (10:55)
[2018-05-29] MEDS: cefTRIAXone 1 GM in D5W 55 ML IVPB SCH (10:56)
[2018-05-29 12:00] VITALS: BP 145/75
[2018-05-29] MEDS: Haloperidol 5mg/ml Inj IM PRN (13:37)
--- NOTE | 2018-05-29 14:08 | General Progress Note ---
Assessment/Plan Problem List: (1) FTT (failure to thrive) in adult ICD Codes: R62.7 - Adult failure to thrive SNOMED: 139607413 (2) encephalopathy due to toxin Assessment/Plan zyprexa 5mg bid zyprexa 5mg prn provided ro/st haldol IM/prn Subjective Neurologic/Psychiatric: Reports: anxiety, depressed, emotional problems Allergies: Coded Allergies: No Known Allergies (Unverified , 05/25/18) per paperwork from [place] Objective Last 24 Hour Vital Signs Date Time Temp Pulse Resp B/P (MAP) Pulse Ox O2 Delivery O2 Flow Rate FiO2 05/29/18 12:00 103 05/29/18 12:00 97.9 98 18 145/75 (98) 98 05/29/18 09:00 Room Air 05/29/18 08:00 109 05/29/18 08:00 97.7 104 18 128/74 (92) 91 05/29/18 04:00 98.1 69 18 143/75 (97) 96 05/29/18 03:23 67 05/29/18 00:00 98.4 65 18 147/64 (91) 98 05/28/18 23:25 65 05/28/18 21:00 Room Air 05/28/18 20:00 98.5 64 18 154/74 (100) 99 05/28/18 16:00 65 05/28/18 16:00 97.7 73 21 153/62 (92) 98 Intake and Output 05/28/18 05/29/18 19:00 07:00 Intake Total 350 ml Output Total 1 ml Balance 350 ml -1 ml IV Total 350 ml Output Urine Total 1 ml # Bowel Movements 1 Height (Feet): 4 Height (Inches): 10.00 Weight (Pounds): 75 General Appearance: alert, confused, agitated Nguyen Slater MD May 29, 2018 14:08
[2018-05-29 16:00] VITALS: BP 116/60
--- NOTE | 2018-05-30 | Discharge Summary ---
DATE OF ADMISSION: 05/25/2018 DATE OF DISCHARGE: 05/29/2018 ADMISSION DIAGNOSES: 1. Altered mental status. 2. Toxic metabolic encephalopathy. 3. Dementia. DISCHARGE DIAGNOSES: 1. Altered mental status. 2. Toxic metabolic encephalopathy. 3. Dementia 4. Acute [place]. 5. E. coli UTI. HOSPITAL COURSE: This is a pleasant female with complaints of altered mental status. She was diagnosed with UTI. She also had a borderline elevated troponin possibly due to ischemia. She had an echo that showed normal LV function. In light of her advanced age and dementia, an invasive diagnostic workup was deferred. The patient was ordered aspirin. On discharge, she was stable. Psychiatric consultation was obtained as well as Neurology consultation. The patient was placed on Namenda and Zyprexa. She will be discharged back to her assisted living with close outpatient followup. Home health was also ordered for the patient. DISCHARGE MEDICATIONS: Please see discharge medication list for discharge medications. DIET: Cardiac diet. ACTIVITIES: Ad-darrian. FOLLOWUP: The patient will be followed up at the assisted living in one week. Tanner Rm M.D. DR: BASSEM JOB#: [id number] CC:
== END 2018-05-29 16:03 | disposition home or self-care (01) | DRG 689 ==
LOC: 4E 19:10 → 2E 22:22
DX: N39.0 Urinary tract infection, site not specified (principal); G92 Toxic encephalopathy; E44.0 Moderate protein-calorie malnutrition; Z68.1 Body mass index [BMI] 19.9 or less, adult; I10 Essential (primary) hypertension; M81.0 Age-related osteoporosis without current pathological fracture; E78.5 Hyperlipidemia, unspecified; E55.9 Vitamin D deficiency, unspecified; F03.90 Unspecified dementia, unspecified severity, without behavioral disturbance, psychotic disturbance, mood disturbance, and anxiety; R62.7 Adult failure to thrive; R29.6 Repeated falls; I51.3 Intracardiac thrombosis, not elsewhere classified; E86.1 Hypovolemia; E86.0 Dehydration; Z66 Do not resuscitate
CPT/HCPCS: 36415; 70450; 80053; 80061; 81003; 82306; 82550; 82553; 82607; 83036; 83735; 83880; 84443; 84484; 85025; 85651; 86592; 87086; 87181; 93306